=== PATIENT | male | born 1980 | race Two or more races ===

== ENCOUNTER 2016-11-21 08:18 | Emergency (ER) | payer BC ==
[2016-11-21 08:35] VITALS: BP 170/114; PULSE 103; TEMP 97.9; BMI 35.2
--- NOTE | 2016-11-21 09:18 | PDOC ---
History of Present Illness - General Chief Complaint: Pain, Acute Stated Complaint: LT KNEE PAIN Time Seen by Provider: 11/21/16 08:57 History Source: Patient Exam Limitations: No Limitations - History of Present Illness Initial Comments: 11/21/16 09:13 Patient complains of pain, swelling immobility to left knee 4 days. 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 Denies any knowledge of significant or particular injury or history to his knees. Denies any recent changes in exercise or activity, Occurred: reports: last week Severity: reports: moderate, severe Pain Location: reports: lower extremity (left leg ) Modifying Factors: improves with: None Past History - Travel Traveled outside of the country in the last 30 days: No Close contact w/someone who was outside of country & ill: No - Past Medical History Allergies/Adverse Reactions: Allergies Allergy/AdvReac Type Severity Reaction Status Date / Time No Known Allergies Allergy Verified 11/21/16 08:26 Home Medications: Ambulatory Orders Carvedilol 0 mg PO ASDIR 08/05/14 Indomethacin [Indocin -] 50 mg PO TID #21 capsule 11/21/16 Cardiac Disorders: Yes HTN: Yes Kidney Stones: Yes - Surgical History Abdominal Surgery: Yes Cardiac Surgery: Yes (bypass) - Immunization History Immunization Up to Date: Yes - Psycho/Social/Smoking Cessation Hx Anxiety: No Suicidal Ideation: No Smoking History: Never smoked Hx Alcohol Use: Yes Substance Use Type: Alcohol Trauma Specific PMHX - Complaint Specific PMHX Back Injury: No Neck Injury: No Review of Systems - Review of Systems Able to Perform ROS?: Yes Is the patient limited Indonesian proficient: Yes Constitutional: Yes: Symptoms Reported, See HPI. No: Chills, Fever, Loss of Appetite, Malaise HEENTM: No: Symptoms Reported Respiratory: No: Symptoms reported Musculoskeletal: Yes: Symptoms Reported, See HPI, Joint Pain, Joint Swelling ( lef tknee ) Integumentary: No: Symptoms Reported Neurological: Yes: See HPI. No: Symptoms reported All Other Systems: Reviewed and Negative *Physical Exam - Vital Signs Last Vital Signs Temp Pulse Resp BP Pulse Ox 97.9 F 103 H 16 170/114 99 11/21/16 08:27 11/21/16 08:27 11/21/16 08:27 11/21/16 08:27 11/21/16 08:27 - Physical Exam General Appearance: Yes: Nourished, Appropriately Dressed, Apparent Distress HEENT: positive: TEDDY, Normal ENT Inspection, Normal Voice, TMs Normal, Pharynx Normal Neck: positive: Supple. negative: Tender Respiratory/Chest: positive: Lungs Clear, Normal Breath Sounds Cardiovascular: positive: Regular Rhythm, Regular Rate Gastrointestinal/Abdominal: positive: Soft Musculoskeletal: positive: Normal Inspection. negative: CVA Tenderness Extremity: positive: Normal Capillary Refill, Normal Inspection, Tender, Other ( neurovasc intact ). negative: Normal Range of Motion (motion to flexion at approximately 10 at knee joint. Positive swelling and mild ballottement upper to patella, patella is mobile without crepitus or step-offs, has mild warmth compared to right knee however no true erythema. No tibial, femur, fibular tenderness.), Pedal Edema, Swelling, Calf Tenderness Integumentary: positive: Normal Color, Dry, Swelling. negative: Erythema, Ecchymosis, Bruising Neurologic: positive: court bailiff or sheriff II-XII NML intact, Fully Oriented, Alert, Normal Mood/ Affect, Normal Response, Motor Strength 5/5 Medical Decision Making - Medical Decision Making X-ray negative for fractures or dislocation *DC/Admit/Observation/Transfer Diagnosis at time of Disposition: Strain of left knee Qualifiers: Encounter type: initial encounter Qualified Code(s): S86.912A - Strain of unspecified muscle(s) and tendon(s) at lower leg level, left leg, initial encounter - Discharge Dispostion Disposition: HOME Condition at time of disposition: Stable Admit: No - Prescriptions Prescriptions: Indomethacin [Indocin -] 50 mg PO TID #21 capsule - Referrals Referrals: Carlos Rich [Primary Care Provider] - Gen Aparicio MD [Staff Physician] - - Patient Instructions Printed Discharge Instructions: DI for Knee Sprain Additional Instructions: Rest, ice to area on and off for 15 minutes 4-6 times a day Avoid heavy lifting or exercise until pain and swelling is resolved or until further directed Keep area highly elevated to reduce swelling Use splints/Tza wrap as directed Followup with orthopedist in one to 2 days if not improving, if significantly improved may wait one week for followup with orthopedist May use ibuprofen 2-200 mg tablets every 6 hours as needed for pain - Post Discharge Activity Work/School Note: Back to Work
--- NOTE | 2016-11-21 18:31 | PDOC ---
*Physical Exam - Vital Signs Last Vital Signs Temp Pulse Resp BP Pulse Ox 97.9 F 103 H 16 170/114 99 11/21/16 08:27 11/21/16 08:27 11/21/16 08:27 11/21/16 08:27 11/21/16 08:27 Medical Decision Making - Medical Decision Making 11/21/16 18:31 Pt seen by Midlevel Provider under my direct supervision Ancillary studies reviewed I agree with plan as outlined by Midlevel Provider *DC/Admit/Observation/Transfer Diagnosis at time of Disposition: Strain of left knee Qualifiers: Encounter type: initial encounter Qualified Code(s): S86.912A - Strain of unspecified muscle(s) and tendon(s) at lower leg level, left leg, initial encounter - Discharge Dispostion Disposition: HOME Condition at time of disposition: Stable - Prescriptions Prescriptions: Indomethacin [Indocin -] 50 mg PO TID #21 capsule - Referrals Referrals: Gen Aparicio MD [Staff Physician] - Carlos Rich [Primary Care Provider] - - Patient Instructions Printed Discharge Instructions: DI for Knee Sprain Additional Instructions: Rest, ice to area on and off for 15 minutes 4-6 times a day Avoid heavy lifting or exercise until pain and swelling is resolved or until further directed Keep area highly elevated to reduce swelling Use splints/Taz wrap as directed Followup with orthopedist in one to 2 days if not improving, if significantly improved may wait one week for followup with orthopedist May use ibuprofen 2-200 mg tablets every 6 hours as needed for pain - Post Discharge Activity Work/School Note: Back to Work
== END 2016-11-21 11:25 | disposition home or self-care (01) ==
LOC: JER 08:18
PROC: 2W3RX1Z Immobilization of Left Lower Leg using Splint (ICD-10-PCS; principal; 2016-11-21)
DX: S86.912A Strain of unspecified muscle(s) and tendon(s) at lower leg level, left leg, initial encounter (principal); X58.XXXA Exposure to other specified factors, initial encounter; Y93.89 Activity, other specified; Y92.9 Unspecified place or not applicable; I10 Essential (primary) hypertension; Z87.442 Personal history of urinary calculi; I51.9 Heart disease, unspecified
CPT/HCPCS: 73562-TC-LT; 99282-25

== ENCOUNTER 2017-01-07 08:27 | Emergency (ER) | payer BC, OTHER ==
[2017-01-07] MEDS ORDERED: IBUPROFEN 600 MG TABLET (FP) PO ONE (09:00)
--- NOTE | 2017-01-07 09:05 | PDOC ---
History of Present Illness - General Chief Complaint: Injury Stated Complaint: LT FOOT PAIN Time Seen by Provider: 01/07/17 08:57 History Source: Patient Exam Limitations: No Limitations - History of Present Illness Initial Comments: 01/07/17 09:01 36 yr male states he injured right foot yesterday at work. [place] and a [place] of equipment ran over his left foot. Pt has HTN, gout . 01/07/17 09:01 Occurred: reports: yesterday Severity: Yes: moderate Lower Extremity Pain Location: left: foot Past History - Past Medical History Allergies/Adverse Reactions: Allergies Allergy/AdvReac Type Severity Reaction Status Date / Time No Known Allergies Allergy Verified 01/07/17 08:41 Home Medications: Ambulatory Orders Carvedilol 0 mg PO ASDIR 08/05/14 Indomethacin [Indocin -] 50 mg PO TID #21 capsule 11/21/16 Cardiac Disorders: Yes HTN: Yes Kidney Stones: Yes Other medical history: GOUT - Surgical History Abdominal Surgery: Yes (GASTRIC BYPASS) Cardiac Surgery: Yes (bypass) - Immunization History Immunization Up to Date: Yes - Psycho/Social/Smoking Cessation Hx Anxiety: No Suicidal Ideation: No Smoking History: Never smoked Information on smoking cessation initiated: No Hx Alcohol Use: Yes Substance Use Type: Alcohol Review of Systems - Review of Systems Able to Perform ROS?: Yes Is the patient limited Hungarian proficient: No Constitutional: No: Symptoms Reported HEENTM: No: Symptoms Reported Respiratory: No: Symptoms reported Cardiac (ROS): No: Symptoms Reported ABD/GI: No: Symptoms Reported : No: Symptoms Reported Musculoskeletal: Yes: See HPI *Physical Exam - Vital Signs Last Vital Signs Temp Pulse Resp BP Pulse Ox 98 F 52 L 18 98/67 98 01/07/17 08:37 01/07/17 08:37 01/07/17 08:37 01/07/17 08:37 01/07/17 08:37 - Physical Exam General Appearance: Yes: Nourished, Appropriately Dressed HEENT: positive: EOMI, TEDDY Neck: positive: Supple Respiratory/Chest: positive: Lungs Clear, Normal Breath Sounds Cardiovascular: positive: Regular Rhythm, Regular Rate Musculoskeletal: positive: Normal Inspection Extremity: positive: Normal Capillary Refill, Normal Inspection, Normal Range of Motion, Tender (left great toe and top of foot with mild swelling , nv intact ) Integumentary: positive: Normal Color, Dry, Warm Neurologic: positive: Fully Oriented, Alert, Normal Mood/Affect, Normal Response , Motor Strength 02/08 ED Treatment Course - RADIOLOGY Radiology Studies Ordered: Category Date Time Status FOOT-LEFT [RAD] Stat Radiology 01/07/17 08:57 Ordered Medical Decision Making - Medical Decision Making 01/07/17 09:04 cc: left foot injury yesterday will get xray r/o fracture motrin for pain *DC/Admit/Observation/Transfer Diagnosis at time of Disposition: Contusion, foot Qualifiers: Encounter type: initial encounter Laterality: left Qualified Code(s): S90.32XA - Contusion of left foot, initial encounter - Discharge Dispostion Disposition: HOME Condition at time of disposition: Good - Referrals Referrals: Carlos Rich [Primary Care Provider] - Genaro Moyer MD [Staff Physician] - - Patient Instructions Additional Instructions: use the hard sole shoe and rené wrap while awake for the next 7 days apply ice to the area of pain every 2hrs for 20 minutes for the next day take motrin (advil, ibuprofen) 600-800mg every 6hrs for pain follow with the orthopedist if pain worsens or persists beyond one week - Post Discharge Activity Work/School Note: Back to Work
[2017-01-07 09:07] VITALS: BP 98/67; PULSE 52; TEMP 98; BMI 35.9
== END 2017-01-07 09:37 | disposition home or self-care (01) ==
LOC: JER 08:27
DX: S90.31XA Contusion of right foot, initial encounter (principal); W20.8XXA Other cause of strike by thrown, projected or falling object, initial encounter; Y93.89 Activity, other specified; Y92.520 Airport as the place of occurrence of the external cause; Y99.0 Civilian activity done for income or pay; I10 Essential (primary) hypertension; M10.9 Gout, unspecified
CPT/HCPCS: 73630-TC-LT; 99281-25

== ENCOUNTER 2021-09-06 14:58 | Emergency (ER) | payer BC ==
[2021-09-06 15:13] VITALS: TEMP 97.8; BMI 35.2
[2021-09-06] MEDS ORDERED: ACETAMINOPHEN 1000 MG/100 ML VIAL IVPB ONE (17:40)
[2021-09-06] MEDS ORDERED: CARVEDILOL 25 MG TABLET (FP) PO ONE (17:43)
[2021-09-06] MEDS ORDERED: amLODIPine BESYLATE 5 MG TABLET (FP) PO ONE (17:43)
[2021-09-06] MEDS ORDERED: amLODIPine BESYLATE 5 MG TABLET (FP) ONE (17:57)
[2021-09-06] MEDS ORDERED: CARVEDILOL 12.5 MG TABLET (FP) ONE (17:57)
[2021-09-06] MEDS ORDERED: ACETAMINOPHEN INJECTION 100 ML IVPB ONE (17:58)
[2021-09-06 18:17] LABS: BASO % 0.6 % (0-2.0); HEMATOCRIT 48.1 % (35.4-49); HEMOGLOBIN 16.6 GM/dL (11.7-16.9); LYMPH % 25.6 % (8-40); MCH 31.7 pg (25.7-33.7); MCHC 34.4 g/dl (32.0-35.9); MEAN CELL VOLUME 92.2 fl (80-96); MEAN PLT VOLUME 7.3 fl (7.5-11.1); NEUT % 62.8 % (42.8-82.8); PLATELET COUNT 264 10^3/uL (134-434); RBC 5.22 M/mm3 (4.00-5.60); RDW 13.5 % (11.9-15.9); WHITE BLOOD COUNT 7.4 K/mm3 (4.0-10.0)
[2021-09-06 18:35] LABS: CHLORIDE 108 mmol/L (98-107); SODIUM 141 mmol/L (136-145)
[2021-09-06 18:37] LABS: ALBUMIN 3.1 g/dl (3.4-5.0); ANION GAP 8 MMOL/L (8-16); CALCIUM 9.3 mg/dL (8.5-10.1); CO2 25 mmol/L (21-32); LIPASE 126 U/L (73-393)
[2021-09-06 18:38] LABS: BLOOD UREA NITROGEN 11.8 mg/dL (7-18); GLUCOSE,RANDOM 95 mg/dL (74-106)
[2021-09-06 18:40] LABS: CREATININE 1.3 mg/dL (0.55-1.3); SGOT/AST 36 U/L (15-37); SGPT/ALT 35 U/L (13-61)
[2021-09-06 18:42] LABS: BILIRUBIN,TOTAL 0.5 mg/dL (0.2-1); TOT PROT 7.3 g/dl (6.4-8.2)
[2021-09-06 18:43] LABS: ALK PHOS 91 U/L (45-117)
[2021-09-06 18:45] LABS: N-TERMINAL BNP 498.1 pg/ml (5-125)
[2021-09-06] MEDS ORDERED: INDOMETHACIN 50 MG CAPSULE PO ONE (19:42)
[2021-09-06] MEDS ORDERED: predniSONE 20 MG TABLET (UD) PO ONE (19:42)
[2021-09-06] MEDS ORDERED: predniSONE 20 MG TABLET (UD) ONE (19:47)
[2021-09-06 19:56] VITALS: BP 137/106; PULSE 96
[2021-09-06 20:04] LABS: ERYTHROCYTE SEDIMENTATION RATE 59 mm/hr (0-10)
[2021-09-09 10:13] LABS: URIC ACID 9.5 mg/dL (2.6-7.2)
== END 2021-09-06 20:12 | disposition home or self-care (01) ==
LOC: JER 14:58
PROC: 3E0333Z Introduction of Anti-inflammatory into Peripheral Vein, Percutaneous Approach (ICD-10-PCS; principal; 2021-09-06)
DX: M10.9 Gout, unspecified (principal)
CPT/HCPCS: 36415; 80053; 82550; 83690; 83880; 84484; 84550; 85025; 85651; 86140; 93005; 93010; 99284-25; J0131

== ENCOUNTER 2022-06-25 12:05 | Emergency (ER) | payer BC ==
[2022-06-25 12:21] VITALS: BP 124/91; PULSE 89; RESP 18; TEMP 98.1; BMI 35.9
== END 2022-06-25 17:59 | disposition home or self-care (01) ==
LOC: JERFT 12:05
DX: M71.22 Synovial cyst of popliteal space [Baker], left knee (principal); M25.561 Pain in right knee; M25.562 Pain in left knee
CPT/HCPCS: 73562-TC-LT-FY; 73562-TC-RT-FY; 93970-TC; 99285-25